=== PATIENT | female | born 2000 | race Hispanic/Latino ===

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

== ENCOUNTER 2022-03-23 18:46 | Emergency (ER) | payer BC ==
[~2022-03-23] VITALS: Ht 162.6 cm; Wt 58.1 kg
[~2022-03-23 18:46] MED LIST: CEPH500B PO; IBUP-2070 PO; POLY17PO4 PO
[2022-03-23 19:35] LABS: BASOPHILS % (AUTO) 0.3 % (0.0-5.0); EOSINOPHILS % (AUTO) 0.3 % (0.0-8.0); HEMATOCRIT 36.6 % (36-48); LYMPHOCYTES % (AUTO) 11.9 % (21.0-51.0); MEAN CORPUSCULAR HEMOGLOBIN 27.5 pg (27.0-33.0); MEAN CORPUSCULAR HGB CONC 34.2 g/dL (32.0-36.0); MEAN CORPUSCULAR VOLUME 80.4 fL (80-100); MONOCYTES % (AUTO) 4.5 % (3.0-13.0); NEUTROPHILS % (AUTO) 82.5 % (40.0-77.0); PLATELET COUNT (AUTO) 258 K/uL (130-400); RED BLOOD CELL COUNT(AUTO) 4.55 MIL/uL (4.00-5.50); RED CELL DISTRIBUTION WIDTH 12.8 % (11.0-15.5); WHITE BLOOD COUNT (AUTO) 7.8 K/uL (4.8-10.8)
[2022-03-23 19:41] VITALS: BP 115/79
[2022-03-23 19:43] LABS: CREATININE 0.6 mg/dL (0.5-1.5); POTASSIUM 3.6 mmol/L (3.5-5.1)
[2022-03-23 19:47] LABS: ALBUMIN 4.3 g/dL (3.5-5.0); TOTAL PROTEIN, SERUM 7.2 g/dL (6.0-8.3)
[2022-03-23] MEDS ORDERED: ONDANSETRON 4MG INJ IVP ONE (20:00)
[2022-03-23] MEDS ORDERED: ACETAMINOPHEN 500 MG TABLET PO ONE (20:00)
[2022-03-23] MEDS ORDERED: ACETAMINOPHEN 650 MG/20.3 ML UDCUP ONE (21:26)
== END 2022-03-24 01:06 | disposition home or self-care (01) ==
LOC: EDH 18:46
DX: O20.0 Threatened abortion (principal); Z98.890 Other specified postprocedural states; Z79.899 Other long term (current) drug therapy; Z3A.01 Less than 8 weeks gestation of pregnancy
CPT/HCPCS: 99284; 80053; 84703; 84702; 85025; 83033; 86900; 86901; 36415; 76817; 96372; J2791; J2405

== ENCOUNTER 2022-03-26 15:14 | Day surgery (SDC) | payer BC ==
[~2022-03-26] VITALS: Ht 162.6 cm; Wt 58.4 kg
[2022-03-26] VITALS (17 sets, daily range): BP systolic 97–127; BP diastolic 57–83
[2022-03-26 15:29] LABS: BASOPHILS % (AUTO) 0.6 % (0.0-5.0); EOSINOPHILS % (AUTO) 0.6 % (0.0-8.0); LYMPHOCYTES % (AUTO) 22.6 % (21.0-51.0); MEAN CORPUSCULAR HEMOGLOBIN 27.1 pg (27.0-33.0); MEAN CORPUSCULAR HGB CONC 33.8 g/dL (32.0-36.0); MEAN CORPUSCULAR VOLUME 80.1 fL (80-100); MONOCYTES % (AUTO) 4.3 % (3.0-13.0); NEUTROPHILS % (AUTO) 71.7 % (40.0-77.0); PLATELET COUNT (AUTO) 287 K/uL (130-400); RED BLOOD CELL COUNT(AUTO) 4.87 MIL/uL (4.00-5.50); RED CELL DISTRIBUTION WIDTH 12.8 % (11.0-15.5); WHITE BLOOD COUNT (AUTO) 4.7 K/uL (4.8-10.8)
[2022-03-26] MEDS ORDERED: LACTATED RINGERS 1000ML 1,000 ML IV ONE (15:31)
[2022-03-26 15:41] LABS: APPEARANCE,URINE SL CLOUDY (CLEAR); BILIRUBIN,URINE NEGATIVE (NEGATIVE); COLOR,URINE YELLOW (YELLOW); GLUCOSE, URINE (UA) NEGATIVE (NEGATIVE); KETONES,URINE NEGATIVE (NEGATIVE); LEUKOCYTE ESTERASE ,URINE NEGATIVE (NEGATIVE); NITRATE,URINE NEGATIVE (NEGATIVE); OCCULT BLOOD,URINE LARGE (NEGATIVE); PROTEIN,URINE TRACE mg/dL (NEGATIVE); UROBILINOGEN,URINE 0.2 mg/dL (0.2-1.0)
[2022-03-26 15:48] LABS: BACTERIA,URINE Rare /HPF (None Seen); WBC,URINE None Seen /HPF (0-1)
[2022-03-26 15:49] LABS: MUCUS,URINE Many LPF (None Seen)
[2022-03-26] MEDS ORDERED: MIDAZOLAM HCL 1 MG/ML 2ML VIAL ONE (15:52)
[2022-03-26] MEDS ORDERED: PROPOFOL 10 MG/ML 20ML VIAL IV ONE (15:52)
[2022-03-26] MEDS ORDERED: FENTANYL CITRATE PF 50 MCG/1 ML 2ML VIAL ONE ×2 (15:53→16:09)
[2022-03-26] MEDS ORDERED: OXYTOCIN 10 USP UNITS/ML IV ONE (15:57)
[2022-03-26] MEDS ORDERED: KETOROLAC 30MG VIAL (30MG/ML) ONE (17:13)
[2022-03-26] MEDS ORDERED: MEPERIDINE-PF 25 MG/ML SYG ONE (17:13)
== END 2022-03-26 19:00 | disposition home or self-care (01) ==
LOC: DAH 15:14
PROVIDERS: ATTEND Obstetrics & Gynecology
DX: O03.4 Incomplete spontaneous abortion without complication (principal)
CPT/HCPCS: 59812; 85025; 86850; 86900; 86901; 86870; 87426; 81001; 81025; 36415; A4663; A7002; A4649; J7120 ×2; J3010 ×2; J2250; J2590; J2704; J1885; J2175; A4315; A4215; A4222; A4221; A4216; A4223 ×2

== ENCOUNTER 2023-10-11 21:53 | Emergency (ER) | payer BC ==
[~2023-10-11] VITALS: Ht 165.1 cm; Wt 50.3 kg
[2023-10-12 00:02] LABS: APPEARANCE,URINE CLOUDY (CLEAR); BILIRUBIN,URINE NEGATIVE (NEGATIVE); COLOR,URINE YELLOW (YELLOW); GLUCOSE, URINE (UA) NEGATIVE (NEGATIVE); KETONES,URINE 40 mg/dL (NEGATIVE); LEUKOCYTE ESTERASE ,URINE 500 Leu/uL (NEGATIVE); NITRATE,URINE NEGATIVE (NEGATIVE); OCCULT BLOOD,URINE MODERATE (NEGATIVE); PH,URINE 5.5 (5.0-8.0); PROTEIN,URINE 100 mg/dL (NEGATIVE); UROBILINOGEN,URINE 0.2 mg/dL (0.2-1.0)
[2023-10-12 00:03] LABS: ADD UA MICROSCOPIC YES
[2023-10-12 00:05] LABS: MUCUS,URINE MOD LPF (None Seen); SQUAMOUS EPITHELIAL CELL,UR RARE /HPF (0-2); WBC CLUMP FEW /HPF (0-1); WBC,URINE TNTC /HPF (0-1)
[2023-10-12 00:33] LABS: CREATININE 0.7 mg/dL (0.5-1.5); POTASSIUM 3.4 mmol/L (3.5-5.1)
[2023-10-12 00:34] LABS: BASOPHILS # (AUTO) 0.06 K/uL (0.00-0.20); BASOPHILS % (AUTO) 0.5 % (0.0-5.0); EOSINOPHILS # (AUTO) 0.01 K/uL (0.00-0.70); EOSINOPHILS % (AUTO) 0.1 % (0.0-8.0); HEMATOCRIT 44.4 % (36-48); IMMATURE GRANULOCYTE ABSOLUTE 0.04 K/uL (0-1); LYMPHOCYTES # (AUTO) 1.2 K/uL (1.0-4.8); LYMPHOCYTES % (AUTO) 9.1 % (21.0-51.0); MEAN CORPUSCULAR HEMOGLOBIN 28.8 pg (27.0-33.0); MEAN CORPUSCULAR HGB CONC 34.5 g/dL (32.0-36.0); MEAN CORPUSCULAR VOLUME 83.5 fL (80-100); MONOCYTES # (AUTO) 0.7 K/uL (0.1-1.0); MONOCYTES % (AUTO) 5.4 % (3.0-13.0); NEUTROPHILS # (AUTO) 10.8 K/uL (1.8-7.7); NEUTROPHILS % (AUTO) 84.6 % (40.0-77.0); PLATELET COUNT (AUTO) 327 K/uL (130-400); RED BLOOD CELL COUNT(AUTO) 5.32 MIL/uL (4.00-5.50); RED CELL DISTRIBUTION WIDTH 12.3 % (11.0-15.5); WHITE BLOOD COUNT (AUTO) 12.7 K/uL (4.8-10.8)
[2023-10-12] MEDS: CEFTRIAXONE 1G VIAL IVPB ONE (03:38)
[2023-10-12] MEDS: 0.9% NACL 500ML IV.SOLN 500 ML IV ONE (03:38)
[2023-10-12] MEDS: KETOROLAC 30MG VIAL (30MG/ML) IVP ONE (03:38)
[2023-10-12] MEDS ORDERED: CIPR-278 PO (03:48)
[2023-10-12] MEDS ORDERED: IBUP-2070 PO (03:48)
[2023-10-12] MEDS ORDERED: ONDA4TAB10 PO (03:50)
[2023-10-12 04:05] VITALS: BP 115/86; PULSE 89; RESP 17; O2SAT 99
== END 2023-10-12 04:07 | disposition home or self-care (01) ==
LOC: EDH 21:53
DX: N39.0 Urinary tract infection, site not specified (principal); N83.201 Unspecified ovarian cyst, right side; Z98.890 Other specified postprocedural states
CPT/HCPCS: 99284; 80048; 85025; 87210; 87077; 87088; 87186; 87797; 87486; 81001; 81025; 36415; 74176; 96374; 96361; 96375; J7040; J0696; J1885